=== PATIENT | female | born 1985 | race African-American/Black ===

== ENCOUNTER 2019-04-27 14:58 | Emergency (ER) | payer BC, MEDICAID ==
[~2019-04-27] VITALS: Ht 167.6 cm; Wt 65.0 kg
[2019-04-27] MEDS ORDERED: HYDROCODONE/ACETAMINOPHEN 5/325MG TABLET PO ONE (16:30)
[2019-04-27 16:42] VITALS: BP 116/77
[2019-04-27] MEDS ORDERED: METHYLPREDNISOLONE SOD SUCC 125 MG/2 ML VIAL IM STA (17:25)
== END 2019-04-27 17:59 | disposition home or self-care (01) ==
LOC: ER 14:58
DX: G89.29 Other chronic pain (principal); M54.5 Low back pain; Z98.890 Other specified postprocedural states; Z87.828 Personal history of other (healed) physical injury and trauma
CPT/HCPCS: 81025; 96372; 99283; J2930

== ENCOUNTER 2024-11-05 10:24 | Emergency (ER) | payer OTHER ==
[~2024-11-05] VITALS: Ht 170.2 cm; Wt 54.0 kg
[2024-11-05 10:29] VITALS: O2SAT 100
[2024-11-05] MEDS ORDERED: KETOROLAC 30MG/ML VIAL IM STA (11:13)
[2024-11-05 12:50] LABS: BASOPHILS % 1.1 % (0.0-2.0); EOSINOPHILS % 7.3 % (0.0-5.0); HEMATOCRIT. 36.9 % (36.0-48.0); HEMOGLOBIN. 12.5 g/dL (12.0-16.0); LYMPHOCYTES % 45.9 % (20.0-50.0); MEAN CORPUSCULAR HEMOGLOBIN 29.5 pg (28.0-32.0); MEAN CORPUSCULAR HGB CONC 33.9 g/dL (31.0-37.0); MEAN PLATELET VOLUME 8.4 fl (7.4-10.4); MONOCYTES % 10.2 % (2.0-8.0); NEUTROPHILS % 35.5 % (40.0-76.0); PLATELET 197 x1000/uL (130-400); RED BLOOD CELL COUNT 4.24 mill/uL (4.2-5.4); RED CELL DISTRIBUTION WIDTH 13.3 % (11.6-14.6); WHITE BLOOD COUNT 3.9 x1000/uL (4.5-11.0)
[2024-11-05 12:59] LABS: HCG SCREEN NEGATIVE
[2024-11-05 13:00] LABS: CARBON DIOXIDE 29 mEq/L (21-32); CHLORIDE 106 mEq/L (98-107); POTASSIUM 3.7 mEq/L (3.5-5.1); PROTHROMBIN TIME 11.6 sec (9.6-11.0); SODIUM 141 mEq/L (136-145)
[2024-11-05 13:01] LABS: CALCIUM 9.6 mg/dL (8.7-10.4)
[2024-11-05 13:05] LABS: CREATININE 0.8 mg/dL (0.6-1.0)
[2024-11-05 13:06] LABS: GLUCOSE 82 mg/dL (70-105); UREA NITROGEN BLOOD 13 mg/dL (9-23)
[2024-11-05 13:08] LABS: ALANINE AMINOTRANSFERASE < 7 IU/L (10-49); ALBUMIN 4.3 g/dL (3.2-4.8); ASPARTATE AMINOTRANSFERASE 11 IU/L (<34); BILIRUBIN DIRECT 0.1 mg/dL (<=3.0); BILIRUBIN TOTAL 0.4 mg/dL (0.1-1.0)
[2024-11-05] MEDS ORDERED: KETOROLAC 30MG/ML VIAL IM NR (13:30)
[2024-11-05 14:25] LABS: CLARITY URINE TURBID (CLEAR); COLOR URINE DARK YELLOW (YELLOW); GLUCOSE URINE NEGATIVE (NEGATIVE); KETONES URINE TRACE (NEGATIVE); LEUKOCYTE ESTERASE URINE 1+ (NEGATIVE); NITRITE URINE NEGATIVE (NEGATIVE); OCCULT BLOOD URINE NEGATIVE (NEGATIVE); PH URINE 5.5 (4.5-8.0); PROTEIN URINE 1+ (NEGATIVE); SPECIFIC GRAVITY URINE 1.031 (1.005-1.030)
[2024-11-05 14:40] LABS: BACTERIA URINE 3+; RBC URINE 0-2 /hpf (0-2); SQUAMOUS EPITHELIAL CELL URINE 1+ /lpf (RARE/1+); YEAST URINE NONE SEEN
[2024-11-05] MEDS ORDERED: IBUP-2028 MT (14:40)
[2024-11-05] MEDS ORDERED: TAMS-11 MT (14:40)
[2024-11-05] MEDS ORDERED: ACET-2708 MT (14:55)
[2024-11-05] MEDS: MORPHINE SULFATE 4 MG/ML INJ (FOR IV/IM USE) IM ONE (15:03)
[2024-11-05 15:05] VITALS: BP 137/94; PULSE 88; RESP 18; TEMP 36.89184; O2SAT 98
== END 2024-11-05 15:06 | disposition home or self-care (01) ==
LOC: ER 10:29
DX: R10.9 Unspecified abdominal pain (principal); Z88.6 Allergy status to analgesic agent; Z98.890 Other specified postprocedural states
CPT/HCPCS: 99284; 74176; 80076; 80048; 81003; 81025; 84703; 83690; 85025; 85610; 36415; J1885

== ENCOUNTER 2025-03-01 02:42 | Emergency (ER) | payer OTHER ==
[~2025-03-01] VITALS: Ht 175.3 cm; Wt 56.0 kg
[~2025-03-01 02:42] MED LIST: ACET-2708 MT; TAMS-54 MT
[2025-03-01 02:48] VITALS: TEMP 37.1; O2SAT 99
[2025-03-01 03:48] LABS: BASOPHILS % 0.2 % (0.0-2.0); EOSINOPHILS % 0.3 % (0.0-5.0); HEMATOCRIT. 34.2 % (36.0-48.0); HEMOGLOBIN. 11.8 g/dL (12.0-16.0); LYMPHOCYTES % 20.4 % (20.0-50.0); MEAN CORPUSCULAR HEMOGLOBIN 29.2 pg (28.0-32.0); MEAN CORPUSCULAR HGB CONC 34.3 g/dL (31.0-37.0); MEAN CORPUSCULAR VOLUME 85.1 fL (81.0-99.0); MEAN PLATELET VOLUME 8.5 fl (7.4-10.4); MONOCYTES % 6.5 % (2.0-8.0); NEUTROPHILS % 72.6 % (40.0-76.0); PLATELET 206 x1000/uL (130-400); RED BLOOD CELL COUNT 4.02 mill/uL (4.2-5.4); RED CELL DISTRIBUTION WIDTH 12.7 % (11.6-14.6); WHITE BLOOD COUNT 13.4 x1000/uL (4.5-11.0)
[2025-03-01 03:57] LABS: CHLORIDE 107 mEq/L (98-107); POTASSIUM 3.4 mEq/L (3.5-5.1); SODIUM 144 mEq/L (136-145)
[2025-03-01 03:58] LABS: CALCIUM 9.1 mg/dL (8.7-10.4); CARBON DIOXIDE 28 mEq/L (21-32)
[2025-03-01 04:03] LABS: GLUCOSE 142 mg/dL (70-105); UREA NITROGEN BLOOD 11 mg/dL (9-23)
[2025-03-01 04:15] LABS: HCG SCREEN NEGATIVE
[2025-03-01] MEDS ORDERED: ACET-2708 MT (05:18)
[2025-03-01 05:26] LABS: *AMPHETAMINES SCREEN URINE NEGATIVE (NEGATIVE); *BARBITURATES SCREEN URINE NEGATIVE (NEGATIVE); *BENZODIAZEPINES SCREEN URINE PRESUMPTIVE POSITIVE (NEGATIVE)
[2025-03-01 05:27] LABS: *COCAINE SCREEN URINE NEGATIVE (NEGATIVE); CANNABINOID URINE SCREEN NEGATIVE (NEGATIVE); ECSTASY MDMA SCREEN URINE NEGATIVE (NEGATIVE); METHADONE URINE SCREEN Pos (NEGATIVE); OPIATES URINE SCREEN NEGATIVE (NEGATIVE); PHENCYCLIDINE URINE SCREEN NEGATIVE (NEGATIVE)
[2025-03-01 05:40] VITALS: BP 102/67; PULSE 84; RESP 18; O2SAT 100
== END 2025-03-01 05:51 | disposition home or self-care (01) ==
LOC: ER 02:42
DX: K13.79 Other lesions of oral mucosa (principal); Z88.6 Allergy status to analgesic agent; Z79.899 Other long term (current) drug therapy
CPT/HCPCS: 36415; 80048; 80305; 84703; 85025; 86850; 86900; 99283